=== PATIENT | female | born 1975 | race African-American/Black ===

== ENCOUNTER 2016-06-10 18:56 | Emergency (ER) | payer OTHER ==
[~2016-06-10] VITALS: Ht 165.1 cm; Wt 65.8 kg
[2016-06-10 19:10] VITALS: BP 122/70
== END 2016-06-10 22:30 | disposition home or self-care (01) ==
LOC: ER 19:07
DX: S76.012A Strain of muscle, fascia and tendon of left hip, initial encounter (principal); S86.912A Strain of unspecified muscle(s) and tendon(s) at lower leg level, left leg, initial encounter; S16.1XXA Strain of muscle, fascia and tendon at neck level, initial encounter; W22.8XXA Striking against or struck by other objects, initial encounter; Y93.89 Activity, other specified; Y99.8 Other external cause status; Y92.69 Other specified industrial and construction area as the place of occurrence of the external cause
CPT/HCPCS: 72040; 73502; 73564

== ENCOUNTER 2016-06-26 08:46 | Emergency (ER) | payer OTHER ==
[~2016-06-26] VITALS: Ht 165.1 cm; Wt 65.8 kg
[2016-06-26 09:52] VITALS: BP 104/72
[2016-06-26] MEDS ORDERED: KETOROLAC TROMETH 30 MG/ML 1ML VIAL IV ONE (11:00)
== END 2016-06-26 12:28 | disposition home or self-care (01) ==
LOC: ER 08:46
DX: S16.1XXA Strain of muscle, fascia and tendon at neck level, initial encounter (principal); E07.9 Disorder of thyroid, unspecified; Y93.89 Activity, other specified; Y99.8 Other external cause status; Y92.69 Other specified industrial and construction area as the place of occurrence of the external cause
CPT/HCPCS: 96374; 99284; J1885